=== PATIENT | male | born 1940 | race Caucasian/White ===

== ENCOUNTER 2016-04-13 10:39 | Day surgery (SDC) | payer MEDICARE, OTHER ==
[~2016-04-13] VITALS: Ht 172.7 cm; Wt 85.0 kg
[2016-04-13] VITALS (32 sets, daily range): BP systolic 94–123; BP diastolic 62–77; PULSE 48–68; RESP 13–27; Ht 172.7 cm; Wt 85.0 kg
[2016-04-13] MEDS ORDERED: ASPI-535 PO (11:41)
[2016-04-13] MEDS ORDERED: VIT1TABL85 PO (11:41)
[2016-04-13] MEDS ORDERED: UBID50TA PO (11:41)
[2016-04-13] MEDS ORDERED: LOSA25TA5 PO (11:41)
[2016-04-13] MEDS ORDERED: FURO20TA3 PO (11:41)
[2016-04-13] MEDS ORDERED: GLUC100015 PO (11:41)
[2016-04-13] MEDS ORDERED: CLOP75TA4 PO (11:41)
[2016-04-13] MEDS ORDERED: OMEG1CAP16 PO (11:41)
--- NOTE | 2016-04-13 11:53 | RADRPT ---
PROCEDURE: XR Chest. CLINICAL INDICATION: Preop. TECHNIQUE: Single frontal chest x-ray. COMPARISON: Chest radiograph 07/27/2013. FINDINGS: The cardiac silhouette is mildly enlarged. Aortic atherosclerotic vascular calcifications are ident ified. Mild bibasilar atelectasis is noted. No pneumothorax, pleural effusion or consolidation is seen. No acute osseous abnormality is noted. IMPRESSION: 1. Mild cardiomegaly. 2. Mild bibasilar atelectasis. 3. Aortic atherosclerosis. RPTAT: HH .Manasa Walton MD, Date Time Electronically viewed and signed by .Manasa Walton MD, on 04/13/2016 11:53 .N/
[2016-04-13 11:54] LABS: BASOPHILS % 0.4 % (0.0-2.0); EOSINOPHILS # 0.3 10^3/ul (0.0-0.5); EOSINOPHILS % 3.4 % (0.0-7.0); HEMATOCRIT 47.7 % (42.0-52.0); HEMOGLOBIN 15.7 g/dl (14.0-18.0); LYMPHOCYTES # 1.9 10^3/ul (0.8-2.9); LYMPHOCYTES % 22.7 % (15.0-51.0); MEAN CORPUSCULAR HEMOGLOBIN 28.5 pg (29.0-33.0); MEAN CORPUSCULAR HGB CONC 32.9 g/dl (32.0-37.0); MEAN CORPUSCULAR VOLUME 86.6 fl (82.0-101.0); MEAN PLATELET VOLUME 8.2 fl (7.4-10.4); MONOCYTE # 1.1 10^3/ul (0.3-0.9); MONOCYTES % 12.8 % (0.0-11.0); NEUTROPHIL # 5.1 10^3/ul (1.6-7.5); NEUTROPHILS % 60.7 % (39.0-77.0); PLATELET COUNT 120 10^3/UL (140-440); RED BLOOD COUNT 5.51 10^6/ul (4.70-6.10); RED CELL DISTRIBUTION WIDTH 13.5 % (11.5-14.5); UNCORRECTED WBC 8.4 10^3/ul (4.8-10.8); WHITE BLOOD COUNT 8.4 10^3/ul (4.8-10.8)
[2016-04-13] MEDS ORDERED: MIDAZOLAM 1 MG/ML 2 ML INJ ONE (11:56)
[2016-04-13] MEDS ORDERED: FENTAnyl 50 MCG/ML VIAL ONE (11:56)
[2016-04-13] MEDS ORDERED: HEPARIN 1000 UNITS/NS (A-LINE) 1,000 ML ONE (11:56)
[2016-04-13] MEDS ORDERED: VERAPAMIL 5 MG INJ ONE (11:56)
[2016-04-13] MEDS ORDERED: NITROGLYCERIN (IC) 100 MCG/ML INJ ONE (11:56)
[2016-04-13] MEDS ORDERED: HEPARIN 1000 UNITS/ML 10 ML INJ ONE (11:56)
[2016-04-13] MEDS ORDERED: IODIXANOL LOCM 100 ML BTL ONE (11:56)
[2016-04-13] MEDS ORDERED: LIDOCAINE 1% (MDV) 20 ML INJ ONE (11:57)
[2016-04-13 12:01] LABS: ALBUMIN 4.1 g/dl (3.3-4.9)
[2016-04-13 12:04] LABS: ALBUMIN/GLOBULIN RATIO 1.46; BILIRUBIN,INDIRECT 1.4 mg/dl (0-1.1); BILIRUBIN,TOTAL 1.4 mg/dl (0.2-1.3); CONDITION 1; TOTAL PROTEIN 6.9 g/dl (6.1-8.1)
[2016-04-13 12:05] LABS: CALCIUM 9.1 mg/dl (8.4-10.2); CHOL/HDL RATIO 4.4 RATIO; CREATININE 1.21 mg/dl (0.61-1.24); INR 0.99; POTASSIUM 4.3 mmol/L (3.5-5.1); PROTIME 13.1 Sec (12.2-14.2)
[2016-04-13 12:06] LABS: PARTIAL THROMBOPLASTIN TIME 27.2 Sec (25.0-35.0)
[2016-04-13] MEDS ORDERED: SOD CHLORIDE 0.9% 1,000 ML IV SCH (14:00)
[2016-04-13] MEDS ORDERED: AL HYDROX/MG HYDROX/SIMETH 30 ML CUP PO PRN (14:00)
[2016-04-13] MEDS ORDERED: morphine 2 MG INJ IV PRN (14:00)
[2016-04-13] MEDS ORDERED: ONDANSETRON 4 MG INJ IV PRN (14:00)
[2016-04-13] MEDS ORDERED: ACETAMINOPHEN 325 MG TAB PO PRN (14:00)
--- NOTE | 2016-04-13 15:48 | CARRPT ---
DATE OF PROCEDURE: 04/13/2016 TYPE OF CONSULTATION: Cardiology. REASON FOR CONSULTATION: 1. Left heart catheterization. 2. Coronary angiography. 3. Left ventriculogram. ATTENDING PHYSICIAN: Dr. Lupillo Galvez REFERRING PHYSICIAN: Self referred. INDICATIONS: Chest pain with positive stress test findings for anterior ischemia , high risk marker for cardiovascular events. TYPE OF ANESTHESIA: Conscious and local. BRIEF HISTORY AND HOSPITAL COURSE: Mr. Nix is a 75-year-old male with history of hypertension, dys lipidemia, coronary artery disease, status post anterior elevation myocardial infarction and PTCA an d stent placement to the LAD and subsequently to the circumflex June 2013, who presented with recur rence of substernal chest pain and underwent a cardiac stress test revealing anterior ischemia and t hus being referred for left heart catheterization to assess for the possibility of significant obstr uctive coronary artery disease lending to symptoms of chest pain and positive stress test findings. PROCEDURE: After informed consent was obtained, the patient was brought to the [facility] cardiac catheterization lab where his right radial area was prepped and draped in usual fas hion. Lidocaine 2% was infiltrated to the right radial area in order to achieve adequate local anes thesia. Using modified Seldinger technique, the right radial artery was cannulated and a 6-Macanese a rterial sheath was placed. A 6-Macanese JL3.5 catheter was used to cath the left main coronary ostium . With contrast injection, multiple views of the left coronary arterial system were obtained. A JL3 .5 was removed over a guidewire and a JR4 was used to cannulate the right coronary arterial ostium. With contrast injection, multiple views of the right coronary arterial system were obtained. JL4 w as removed over a guidewire and a 6-Macanese pigtail was passed down the aorta into the LV and LVED pr essure was assessed. Using a power injector, 20 mL of contrast was injected, pigtail catheter was t hen pulled back across the aortic valve to assess for significant gradient, which there was not and removed. Subsequently, this completed the procedure. The patient's catheter was removed. Sheath w as removed. TR band was applied. There were no noted complications. FINDINGS: Coronary angiography: Left main 4.5 mm, no significant stenoses. LAD proximally is a 3.5 mm vessel and has a widely patent stent with no significant in-stent restenosis. After the stent t here is a stepdown and approximately a 30% to 40% stenosis and in the mid portion of the LAD there w as another approximately 30% to 40% stenosis. The remainder of the LAD thereafter is free of signifi cant focal stenoses around the apex, there is a mid branching diagonal 2 mm vessel with no significa nt focal stenoses. The circumflex proximally is a 3 mm vessel and has a widely patent stent in its proximal and mid portions with no significant in-stent restenosis. There are 2 to mid branch obtuse marginals 2 mm vessel with no significant focal stenoses and a proximal branching obtuse marginal w ith no significant focal stenoses. The right coronary artery proximally is a 3.5 mm vessel and in it s mid distal portion has a focal 30% stenosis. The right coronary artery is a dominant vessel and th erefore gives off a 2 mm PDA and a 3 mm posterolateral branch each with no significant focal stenose s. Left ventriculogram showed a left ventricular ejection fraction of 50 to 55% with mild anterolateral hypokinesis and an apical hypokinesis approximately 40% to 45% with anterolateral hypokinesis and a pical hypokinesis. LVEDP 12 to 14. No significant aortic stenosis by gradient. TOTAL FLUOROSCOPY TIME: 3.9 minutes. TOTAL CONTRAST: 60 mL. IMPRESSION: 1. Moderate nonobstructive coronary artery disease. 2. Widely patent proximal left anterior descending stent. 3. Widely patent proximal and mid circumflex stents. 4. Normal left heart filling pressures. 5. No significant aortic stenosis by gradient. 6. Mildly depressed left ventricular systolic function with wall motion abnormalities as above. RECOMMENDATIONS: In light of procedure and findings at this time would: 1. Maximize medical management. 2. Aggressive risk factor reduction. 3. Patient may be readmitted to the same day surgery center for post-cath observation and continued management of symptoms with probable discharge later this afternoon. Dictated By: LUPILLO VIDAL/RICA Conf#: [id number] DID#: [id number]
--- NOTE | 2016-04-17 10:59 | RADRPT ---
Vent Rate: 56 bpm RR Interval: 0 msec MO Interval: 228 msec QRS Duration: 98 msec QT Interval: 426 msec QTC Interval: 411 msec P-R-T [place]: 42 - -41 - 96 degrees Sinus bradycardia with 1st degree AV block with premature atrial complexes Left axis deviation Minimal voltage criteria for LVH, may be normal variant Anteroseptal infarct , age undetermined Abnormal ECG Electronically Signed By: Nagi Truong [id number]
== END 2016-04-13 18:00 | disposition home or self-care (01) ==
LOC: SDS 10:39
PROVIDERS: ATTEND Internal Medicine
DX: I25.10 Atherosclerotic heart disease of native coronary artery without angina pectoris (principal); R94.39 Abnormal result of other cardiovascular function study; I10 Essential (primary) hypertension; I25.2 Old myocardial infarction
CPT/HCPCS: 71010; 80053; 80061; 85025; 85610; 85730; 93005; 93458; C1769; C1887; J1644; J2250; J3010; Q9967